=== PATIENT | female | born 1960 | race Caucasian/White ===

== ENCOUNTER 2020-05-23 18:35 | Inpatient (IN) | payer MEDICARE, MEDICAID ==
[~2020-05-23] VITALS: Ht 162.6 cm; Wt 64.4 kg
[2020-05-23] MEDS ORDERED: LACT10SO7 PO (19:24)
[2020-05-23 19:31] LABS: BASOPHILS % 0.5 % (0.0-2.0); HEMATOCRIT. 45.5 % (36.0-48.0); HEMOGLOBIN. 15.2 g/dL (12.0-16.0); LYMPHOCYTES % 13.3 % (20.0-50.0); MEAN CORPUSCULAR HEMOGLOBIN 29.7 pg (28.0-32.0); MEAN PLATELET VOLUME 10.4 fl (7.4-10.4); MONOCYTES % 8.1 % (2.0-8.0); NEUTROPHILS % 77.1 % (40.0-76.0); PLATELET 229 x1000/uL (130-400); RED BLOOD CELL COUNT 5.12 mill/uL (4.2-5.4); RED CELL DISTRIBUTION WIDTH 13.5 % (11.6-14.6)
[2020-05-23 19:34] LABS: CHLORIDE 99 mEq/L (98-107)
[2020-05-23 19:39] LABS: ETHANOL BLOOD < 10 mg/dL
[2020-05-23] MEDS ORDERED: TOPI50TA24 MT (19:43)
[2020-05-23] MEDS ORDERED: ATOR20TA65 PO (19:45)
[2020-05-23] MEDS ORDERED: BENZ1TAB7 MT (19:46)
[2020-05-23] MEDS ORDERED: CARB200C7 PO (19:47)
[2020-05-23] MEDS ORDERED: RISP1SOL4 PO (19:48)
[2020-05-23] MEDS ORDERED: POTASSIUM CHLORIDE 20MEQ TABLET SR PO ONE (23:15)
[2020-05-24 00:36] LABS: CLARITY URINE CLEAR (CLEAR); COLOR URINE YELLOW (YELLOW); KETONES URINE NEGATIVE (NEGATIVE); LEUKOCYTE ESTERASE URINE NEGATIVE (NEGATIVE); NITRITE URINE NEGATIVE (NEGATIVE); OCCULT BLOOD URINE TRACE (NEGATIVE); PROTEIN URINE NEGATIVE (NEGATIVE); SPECIFIC GRAVITY URINE 1.005 (1.005-1.030); UROBILINOGEN URINE 0.2 E.U./dL (0.2-1.0)
[2020-05-24 00:47] LABS: *BARBITURATES SCREEN URINE NEGATIVE (NEGATIVE); *COCAINE SCREEN URINE NEGATIVE (NEGATIVE); OPIATES URINE SCREEN NEGATIVE (NEGATIVE)
[2020-05-24 00:48] LABS: *AMPHETAMINES SCREEN URINE NEGATIVE (NEGATIVE); *BENZODIAZEPINES SCREEN URINE NEGATIVE (NEGATIVE); CANNABINOID URINE SCREEN NEGATIVE (NEGATIVE); METHADONE URINE SCREEN NEGATIVE (NEGATIVE); PHENCYCLIDINE URINE SCREEN NEGATIVE (NEGATIVE)
[2020-05-24] MEDS ORDERED: HYDRALAZINE 20MG/ML VIAL IV PRN (06:45)
[2020-05-24] MEDS ORDERED: GUAIFENESIN 200MG/10ML SUGAR FREE UDC PO PRN (06:45)
[2020-05-24] MEDS ORDERED: CLONIDINE 0.1MG TABLET PO PRN (06:45)
[2020-05-24] MEDS ORDERED: ONDANSETRON HCL 4MG/2ML INJ IV PRN (06:45)
[2020-05-24] MEDS ORDERED: MORPHINE SULFATE 2 MG/ML CPJ (NOT FOR IM USE) IV PRN (06:45)
[2020-05-24] MEDS ORDERED: DOCUSATE SODIUM 100MG CAPSULE PO PRN (06:45)
[2020-05-24] MEDS ORDERED: NA PHOS,M-B/NA PHOS,DI-BA ENEMA 118ML PR PRN (06:45)
[2020-05-24] MEDS ORDERED: HYDROCODONE/ACETAMINOPHEN 5/325MG TABLET PO PRN (06:45)
[2020-05-24] MEDS ORDERED: MAGNESIUM/ALUMINUM HYDROXIDE/SIMETHICONE 30ML UDC PO PRN (06:45)
[2020-05-24] MEDS ORDERED: IPRATROPIUM/ALBUTEROL 0.5-3(2.5)MG/3ML NEB NEB PRN (06:45)
[2020-05-24] MEDS ORDERED: DIPHENHYDRAMINE 50MG/ML VIAL IV PRN (06:45)
[2020-05-24] MEDS: BENZTROPINE MESYLATE 1MG TABLET PO SCH ×2 (11:00→21:00)
[2020-05-24] MEDS: TOPIRAMATE 25MG TABLET PO SCH ×2 (11:00→21:00)
[2020-05-24] MEDS: RISPERIDONE 1MG TABLET PO SCH ×2 (11:00→17:38)
[2020-05-24] MEDS: ENOXAPARIN 40MG/0.4ML SYR SUBCUT SCH (11:00)
[2020-05-24] MEDS: CARBAMAZEPINE 200MG TABLET PO SCH ×2 (11:00→21:00)
[2020-05-24] MEDS: SODIUM CHLORIDE 0.45% 1,000 ML IV SCH (11:15)
[2020-05-24 12:00] VITALS: BP 122/60
[2020-05-24 12:40] VITALS: BP 122/60
[2020-05-24] MEDS: SODIUM CHLORIDE 0.9% INJ 3ML FLUSH IVF SCH ×2 (14:00→22:00)
[2020-05-24] MEDS ORDERED: *PATIENT'S OWN MEDICATION STORAGE XX SCH (14:00)
[2020-05-24] MEDS: THIAMINE HCL 100MG TABLET PO SCH (19:00)
[2020-05-24 20:00] VITALS: BP 129/83
[2020-05-24] MEDS: ATORVASTATIN CALCIUM 20MG TABLET PO SCH (21:00)
[2020-05-25] VITALS: BP 98/51
[2020-05-25] MEDS: SODIUM CHLORIDE 0.45% 1,000 ML IV SCH ×2 (00:35→13:55)
[2020-05-25 04:00] VITALS: BP 100/53
[2020-05-25] MEDS: THIAMINE HCL 100MG TABLET PO SCH (09:00)
[2020-05-25] MEDS: RISPERIDONE 1MG TABLET PO SCH ×2 (09:00→16:20)
[2020-05-25] MEDS: TOPIRAMATE 25MG TABLET PO SCH ×2 (09:00→21:00)
[2020-05-25] MEDS: CARBAMAZEPINE 200MG TABLET PO SCH ×2 (09:00→21:00)
[2020-05-25] MEDS: BENZTROPINE MESYLATE 1MG TABLET PO SCH (09:00)
[2020-05-25] MEDS: ENOXAPARIN 40MG/0.4ML SYR SUBCUT SCH (09:00)
[2020-05-25] MEDS: SODIUM CHLORIDE 0.9% INJ 3ML FLUSH IVF SCH ×2 (14:00→22:00)
[2020-05-25] MEDS ORDERED: HALOPERIDOL LACTATE 5MG/ML VIAL IM PRN (16:00)
[2020-05-25] MEDS: ATORVASTATIN CALCIUM 20MG TABLET PO SCH (21:00)
[2020-05-26] MEDS: SODIUM CHLORIDE 0.9% INJ 3ML FLUSH IVF SCH ×3 (06:00→22:00)
[2020-05-26 08:00] VITALS: BP 117/72
[2020-05-26] MEDS: CARBAMAZEPINE 200MG TABLET PO SCH ×2 (09:00→21:00)
[2020-05-26] MEDS: THIAMINE HCL 100MG TABLET PO SCH (09:00)
[2020-05-26] MEDS: TOPIRAMATE 25MG TABLET PO SCH ×2 (09:00→21:00)
[2020-05-26] MEDS: ENOXAPARIN 40MG/0.4ML SYR SUBCUT SCH (09:00)
[2020-05-26] MEDS: BENZTROPINE MESYLATE 1MG TABLET PO SCH ×2 (09:00→21:00)
[2020-05-26] MEDS: RISPERIDONE 1MG TABLET PO SCH ×2 (09:00→17:00)
[2020-05-26 12:00] VITALS: BP 122/70
[2020-05-26 16:00] VITALS: BP 127/77
[2020-05-26] MEDS ORDERED: TUBERCULIN,PURIF.PROT.DERIV. 5 TU/0.1 ML SYR ID ONE (18:00)
[2020-05-26 20:00] VITALS: BP 128/77
[2020-05-26] MEDS: ATORVASTATIN CALCIUM 20MG TABLET PO SCH (21:00)
[2020-05-27] VITALS (7 sets, daily range): BP systolic 98–129; BP diastolic 54–86
[2020-05-27 08:59] LABS: HEMATOCRIT. 38.1 % (36.0-48.0); HEMOGLOBIN. 12.6 g/dL (12.0-16.0); MEAN CORPUSCULAR HEMOGLOBIN 29.7 pg (28.0-32.0); MEAN CORPUSCULAR VOLUME 89.8 fL (81.0-99.0); MEAN PLATELET VOLUME 9.3 fl (7.4-10.4); PLATELET 212 x1000/uL (130-400); RED BLOOD CELL COUNT 4.24 mill/uL (4.2-5.4); RED CELL DISTRIBUTION WIDTH 14.2 % (11.6-14.6)
[2020-05-27] MEDS: ENOXAPARIN 40MG/0.4ML SYR SUBCUT SCH ×2 (09:00→09:28)
[2020-05-27 09:11] LABS: CHLORIDE 106 mEq/L (98-107)
[2020-05-27 09:19] LABS: CREATINE KINASE 150 IU/L (26-192); T4 FREE 1.63 ng/dL (0.76-1.46)
[2020-05-27] MEDS: THIAMINE HCL 100MG TABLET PO SCH (09:27)
[2020-05-27] MEDS: RISPERIDONE 1MG TABLET PO SCH ×2 (09:27→18:11)
[2020-05-27] MEDS: CARBAMAZEPINE 200MG TABLET PO SCH (09:27)
[2020-05-27] MEDS: BENZTROPINE MESYLATE 1MG TABLET PO SCH ×2 (09:28→22:21)
[2020-05-27] MEDS: TOPIRAMATE 25MG TABLET PO SCH ×2 (09:28→22:21)
[2020-05-27 09:39] LABS: VITAMIN B12 SERUM 1002 pg/mL (211-911)
[2020-05-27] MEDS: ACETAMINOPHEN 325MG TABLET PO PRN (13:04)
[2020-05-27] MEDS: SODIUM CHLORIDE 0.9% INJ 3ML FLUSH IVF SCH ×2 (14:00→22:00)
[2020-05-27] MEDS ORDERED: POTASSIUM CHLORIDE 20MEQ TABLET SR PO NR (18:02)
[2020-05-27] MEDS: DIVALPROEX SODIUM 250MG DR TABLET PO SCH (22:21)
[2020-05-27] MEDS: ATORVASTATIN CALCIUM 20MG TABLET PO SCH (22:22)
[2020-05-27 22:37] LABS: PLATELET ESTIMATE NORMAL
[2020-05-27] MEDS: SODIUM CHLORIDE 0.45% 1,000 ML IV SCH (23:08)
[2020-05-28] VITALS: BP 99/58
[2020-05-28 04:00] VITALS: BP 113/80
[2020-05-28] MEDS: SODIUM CHLORIDE 0.9% INJ 3ML FLUSH IVF SCH ×3 (05:18→21:47)
[2020-05-28 06:07] LABS: HIV SCREEN 4G Non Reactive (Non Reactive)
[2020-05-28 08:00] VITALS: BP 116/65
[2020-05-28] MEDS: SODIUM CHLORIDE 0.45% 1,000 ML IV SCH ×2 (08:35→21:47)
[2020-05-28] MEDS: DIVALPROEX SODIUM 250MG DR TABLET PO SCH ×2 (09:46→21:51)
[2020-05-28] MEDS: RISPERIDONE 1MG TABLET PO SCH ×2 (09:46→17:52)
[2020-05-28] MEDS: THIAMINE HCL 100MG TABLET PO SCH (09:46)
[2020-05-28] MEDS: TOPIRAMATE 25MG TABLET PO SCH ×2 (09:47→21:51)
[2020-05-28] MEDS: BENZTROPINE MESYLATE 1MG TABLET PO SCH ×2 (09:47→21:50)
[2020-05-28] MEDS: ENOXAPARIN 40MG/0.4ML SYR SUBCUT SCH (09:48)
[2020-05-28 12:00] VITALS: BP 106/73
[2020-05-28 16:00] VITALS: BP 116/65
[2020-05-28] MEDS: ACETAMINOPHEN 325MG TABLET PO PRN (16:36)
[2020-05-28 20:00] VITALS: BP 104/67
[2020-05-28] MEDS: ATORVASTATIN CALCIUM 20MG TABLET PO SCH (21:53)
[2020-05-29] VITALS: BP 118/76
[2020-05-29 04:00] VITALS: BP 105/70
[2020-05-29] MEDS: ACETAMINOPHEN 325MG TABLET PO PRN (04:34)
[2020-05-29] MEDS: SODIUM CHLORIDE 0.9% INJ 3ML FLUSH IVF SCH ×2 (05:12→13:40)
[2020-05-29 08:00] VITALS: BP 117/72
[2020-05-29] MEDS: TOPIRAMATE 25MG TABLET PO SCH ×2 (08:37→09:00)
[2020-05-29] MEDS: THIAMINE HCL 100MG TABLET PO SCH ×2 (08:37→09:00)
[2020-05-29] MEDS: DIVALPROEX SODIUM 250MG DR TABLET PO SCH ×2 (08:37→09:00)
[2020-05-29] MEDS: BENZTROPINE MESYLATE 1MG TABLET PO SCH ×2 (08:38→09:00)
[2020-05-29] MEDS: ENOXAPARIN 40MG/0.4ML SYR SUBCUT SCH ×2 (08:38→09:00)
[2020-05-29] MEDS: RISPERIDONE 1MG TABLET PO SCH ×2 (09:00→17:00)
[2020-05-29] MEDS: SODIUM CHLORIDE 0.45% 1,000 ML IV SCH (11:15)
[2020-05-29 12:00] VITALS: BP 111/74
[2020-05-29 16:00] VITALS: BP 103/73
[2020-05-29 16:40] VITALS: BP 103/73
== END 2020-05-29 19:00 | DRG 177 ==
LOC: ER 18:35 → 6EST 23:25 → ENRESERV 05-24 08:39 → 7WST 05-27 20:30
PROVIDERS: ADMIT Internal Medicine; ATTEND Internal Medicine
DX: U07.1 COVID-19 (principal); G93.41 Metabolic encephalopathy; N17.0 Acute kidney failure with tubular necrosis; E46 Unspecified protein-calorie malnutrition; T76.01XA Adult neglect or abandonment, suspected, initial encounter; E44.0 Moderate protein-calorie malnutrition; R64 Cachexia; E87.6 Hypokalemia; E86.0 Dehydration; Z68.24 Body mass index [BMI] 24.0-24.9, adult; Z79.899 Other long term (current) drug therapy; F99 Mental disorder, not otherwise specified
CPT/HCPCS: 36415; 71045; 80053; 80305; 80320; 81003; 82550; 82607; 82962; 84439; 84443; 85025; 87389; 87426; 90585; 93005; 97162; 97165; 99285; C1893; J1630; J1650; G0480